=== PATIENT | female | born 1985 | race Caucasian/White ===

== ENCOUNTER 2018-07-07 10:13 | Inpatient (IN) | payer OTHER ==
[~2018-07-07] VITALS: Ht 160 cm; Wt 78.2 kg
[2018-07-07] MEDS ORDERED: TYLOTC500 PO (10:33)
[2018-07-07] MEDS ORDERED: CEPH500C2 PO (10:33)
[2018-07-07] MEDS ORDERED: LACT10SO3 PO (10:33)
[2018-07-07] MEDS ORDERED: SENNTAB23 PO (10:33)
[2018-07-07] MEDS ORDERED: SODIUM CHLORIDE 0.9% 1000ML 500 ML IV STA (10:39)
[2018-07-07] MEDS ORDERED: ONDANSETRON INJ 2 MG/ML 2 ML VIAL IV STA (10:39)
[2018-07-07] MEDS ORDERED: KETOROLAC TROMETHAMINE 30 MG/ML VIAL IV STA (10:39)
[2018-07-07] MEDS ORDERED: MoRPHine SULFATE 4 MG/ML 1 ML CARP\\VIAL IV PRN (10:45)
[2018-07-07 12:07] LABS: BASO % 0.4 %; BASO ABS # 0.03 K/uL (0-0.2); EOS % 3.3 %; EOS ABS # 0.24 K/uL (0-0.5); HEMATOCRIT 31.1 % (37-47); HEMOGLOBIN 10.4 g/dL (12.0-16.0); IG# 0.02 K/uL (0.00-0.02); LYMPH % 17.7 %; LYMPH ABS # 1.29 K/uL (1.2-3.4); MEAN CELL VOLUME 93.7 fL (80-100); MEAN CORPUSCULAR HEMOGLOBIN 31.3 pg (25-34); MEAN CORPUSCULAR HGB CONC 33.4 g/dl (32-36); MEAN PLATELET VOLUME 10.2 fL (7.4-10.4); MONO % 10.1 %; MONO ABS # 0.74 K/uL (0.11-0.59); NEUT % 68.2 %; NEUT ABS # 4.98 K/uL (1.4-6.5); PLATELET COUNT 312 K/uL (130-400); RED CELL DISTRIBUTION WIDTH CV 12.4 % (11.5-14.5); RED CELL DISTRIBUTION WIDTH SD 42.6 fL (36.4-46.3)
[2018-07-07 12:26] LABS: ALBUMIN 2.8 gm/dl (3.4-5.0); CALCIUM 8.9 mg/dl (8.5-10.1); CREATININE 0.66 mg/dl (0.60-1.20); POTASSIUM 3.4 mmol/L (3.5-5.1); TOTAL PROTEIN 6.5 gm/dl (6.4-8.2)
--- NOTE | 2018-07-07 13:00 | DIAGNOSTIC IMAGING REPORT ---
(WARD/BLAD)RETROPERITON COMP HISTORY: Pain FLANK PAIN COMPARISON: None. FINDINGS: Right kidney: Maximum dimension 10.7 cm. No evidence for hydronephrosis. Normal corticomedullary differentiation and cortical thickness. Left kidney: Maximum dimension 11.8 cm. No evidence for hydronephrosis. Normal corticomedullary differentiation and cortical thickness. Bladder: No bladder wall thickening. The bilateral ureteral jets were identified. IMPRESSION: Normal renal ultrasound. The above report was generated using voice recognition software. It may contain grammatical, syntax or spelling errors. Electronically signed by: Marshall Collins M.D. 07/07/2018 12:59 PM Dictated Date/Time: 07/07/2018 12:58 PM
[2018-07-07] MEDS ORDERED: OPTIRAY 320 IV PRN (13:30)
--- NOTE | 2018-07-07 14:33 | DIAGNOSTIC IMAGING REPORT ---
ABD/PELVIS IV CONTRAST ONLY CT DOSE: 375.10 mGy.cm HISTORY: Pain ABD PAIN, POSS renal abscess, IV CONTRAST ONLY TECHNIQUE: Multiaxial CT images of the abdomen and pelvis were performed following the use of intravenous contrast. A dose lowering technique was utilized adhering to the principles of ALARA. COMPARISON STUDY: None. FINDINGS: Small right and to a lesser extent left basilar pleural effusion. Bibasilar atelectatic and or infiltrative changes considered more prominent on the right. Liver spleen and pancreas enhance uniformly. There is a small amount of perihepatic as well as perisplenic ascites. There is moderate amount of gallbladder wall edema versus a trace amount of pericholecystic fluid. Gallbladder does not appear distended. Pancreas appears uniform. Right kidney enhances uniformly. Left kidney demonstrates a small geographic area of diminished enhancement at its anterior mid pole. A low-grade pyelonephritis is considered. Indication of fluid within the right and to a lesser extent left paracolic gutter. The bowel pattern is considered nonobstructive. There is a moderate amount of free fluid within the pelvic cul-de-sac. Uterus is anteflexed. No findings of mild infiltrative change of the fascial planes surrounding and superior to the bladder. Slight edematous change of the ovaries. IMPRESSION: 1. Small bilateral pleural effusions with right and to lesser extent left basilar infiltrative change. 2. Regional diminished enhancement mid aspect left kidney anteriorly suggesting focal pyelonephritis. 3. Small amount of ascites within the right as well as left paracolic gutter with moderate ascites within the pelvis. 4. Mild infiltrative changes with fat surrounding the bladder raising the possibility of an underlying component of cystitis. 5. Trace pericholecystic fluid versus a moderate wall edema. This may be secondary to the ascites present, although a component of acalculus cholecystitis is not excluded The above report was generated using voice recognition software. It may contain grammatical, syntax or spelling errors. Electronically signed by: Marshall Collins M.D. 07/07/2018 2:32 PM Dictated Date/Time: 07/07/2018 2:23 PM
[2018-07-07] MEDS ORDERED: CEFEPIME IV 2,000 MG in DEXTROSE 5% 100ML 100 ML IV STA (14:55)
[2018-07-07] MEDS ORDERED: CEFEPIME IV 1,000 MG in DEXTROSE 5% 100ML 100 ML IV SCH (15:45)
--- NOTE | 2018-07-07 17:05 | EMERGENCY ROOM VISIT NOTE ---
History Report prepared by [place]: Lakisha Payton Under the Supervision of: Dr. Isaac Alcaraz M.D. First contact with patient: 10:29 Chief Complaint: FEVER Stated Complaint: PAIN,SWOLLEN ABDOMEN,FEVER,CHILLS History of Present Illness The patient is a 32 year old female who presents to the Emergency Room with complaints of constant bilateral flank pain that she rates at a 8/10. The patient states that about two weeks ago, she got a UTI and did not go to the doctor because she did not have insurance. She states that she then began to get more sick. The patient states she began to get flank pain on both sides, abdominal pain, nauseous, and feverish. She states that she went to [facility] when her left flank started to be more painful than her right flank. The patient states that [place] did a CT scan and a urine culture, and told her that she had an abscess forming on her left kidney and that they wanted her to go to [facility]. [place], they told her that they would give her 24-[address] before doing another [address] scan, however, she states that they never did another CT scan. She states that she was on vancomycin the entire time she was there. She was discharged yesterday morning and is currently on Keflex. The patient states that has never had a kidney stone or kidney infection, and states that she has no concern for . The patient states that she still has all of the same symptoms that she had when she originally went to [place]. The patient denies vomiting in the past 24 hours. The patient states that her abdomen is swollen. The patient states that she was on oxycodone and Dilaudid and then took stool softeners when she got home yesterday and is now having bowel movements. Source of History: patient Onset: two weeks prior to arrival Position: back (bilateral flank) Symptom Intensity: 8/10 Timing: constant Associated Symptoms: + urinary symptoms, No vomiting Note: additional symptoms: swollen abdomen Review of Systems See HPI for pertinent positives & negatives. A total of 10 systems reviewed and were otherwise negative. Past Medical & Surgical Pyelonephritis Social History Smoking Status: Former Smoker Current/Historical Medications Scheduled Acetaminophen (Tylenol), 1,000 MG PO DIRECTED Cephalexin Monohydrate (Keflex), 500 MG PO QID Lactulose (Chronulac), 1 DOSE PO UD Sennosides-Docusate Sodium (Stool Softener), 1 DOSE PO UD Allergies Coded Allergies: Amoxicillin (Unverified Allergy, Unknown, ., 07/07/18) Clavulanic Acid (Unverified Allergy, Unknown, ., 07/07/18) Physical Exam Vital Signs Date Time Temp Pulse Resp B/P (MAP) Pulse Ox O2 Delivery O2 Flow Rate FiO2 07/07/18 15:41 47 17 113/72 99 Room Air 07/07/18 13:19 46 103/71 98 Room Air 07/07/18 12:13 52 17 109/73 97 07/07/18 10:16 36.4 75 17 145/98 98 Room Air Physical Exam GENERAL: Patient is in no acute distress. HEENT: No acute trauma, normocephalic atraumatic, mucous membranes moist, no nasal congestion, no scleral icterus. NECK: No stridor, no adenopathy, no meningismus, trachea is midline. LUNGS: Clear to auscultation bilaterally, no wheeze, no rhonchi, breath sounds equal. HEART: Without murmurs gallops or rubs, regular rate and rhythm. ABDOMEN: Soft, bowel sounds positive, no hernias, no peritonitis. Diffusely mildly tender. EXTREMITIES: No cyanosis or edema, full range of motion of all the joints without pain or difficulty, no signs for acute trauma. NEUROLOGIC: Oriented x 3, no acute motor or sensory deficits, no focal weakness. SKIN: No rash, no jaundice, no diaphoresis. BACK: Mild bilateral flank discomfort with percussion. Medical Decision & Procedures ER Provider Diagnostic Interpretation: Radiology results as stated below per my review and radiologist interpretation: (WARD/BLAD)RETROPERITON COMP HISTORY: Pain FLANK PAIN COMPARISON: None. FINDINGS: Right kidney: Maximum dimension 10.7 cm. No evidence for hydronephrosis. Normal corticomedullary differentiation and cortical thickness. Left kidney: Maximum dimension 11.8 cm. No evidence for hydronephrosis. Normal corticomedullary differentiation and cortical thickness. Bladder: No bladder wall thickening. The bilateral ureteral jets were identified. IMPRESSION: Normal renal ultrasound. The above report was generated using voice recognition software. It may contain grammatical, syntax or spelling errors. Electronically signed by: Marsahll Collins M.D. 07/07/2018 12:59 PM Dictated Date/Time: 07/07/2018 12:58 PM ABD/PELVIS IV CONTRAST ONLY CT DOSE: 375.10 mGy.cm HISTORY: Pain ABD PAIN, POSS renal abscess, IV CONTRAST ONLY TECHNIQUE: Multiaxial CT images of the abdomen and pelvis were performed following the use of intravenous contrast. A dose lowering technique was utilized adhering to the principles of ALARA. COMPARISON STUDY: None. FINDINGS: Small right and to a lesser extent left basilar pleural effusion. Bibasilar atelectatic and or infiltrative changes considered more prominent on the right. Liver spleen and pancreas enhance uniformly. There is a small amount of perihepatic as well as perisplenic ascites. There is moderate amount of gallbladder wall edema versus a trace amount of pericholecystic fluid. Gallbladder does not appear distended. Pancreas appears uniform. Right kidney enhances uniformly. Left kidney demonstrates a small geographic area of diminished enhancement at its anterior mid pole. A low-grade pyelonephritis is considered. Indication of fluid within the right and to a lesser extent left paracolic gutter. The bowel pattern is considered nonobstructive. There is a moderate amount of free fluid within the pelvic cul-de-sac. Uterus is anteflexed. No findings of mild infiltrative change of the fascial planes surrounding and superior to the bladder. Slight edematous change of the ovaries. IMPRESSION: 1. Small bilateral pleural effusions with right and to lesser extent left basilar infiltrative change. 2. Regional diminished enhancement mid aspect left kidney anteriorly suggesting focal pyelonephritis. 3. Small amount of ascites within the right as well as left paracolic gutter with moderate ascites within the pelvis. 4. Mild infiltrative changes with fat surrounding the bladder raising the possibility of an underlying component of cystitis. 5. Trace pericholecystic fluid versus a moderate wall edema. This may be secondary to the ascites present, although a component of acalculus cholecystitis is not excluded The above report was generated using voice recognition software. It may contain grammatical, syntax or spelling errors. Electronically signed by: Marshall Collins M.D. 07/07/2018 2:32 PM Dictated Date/Time: 07/07/2018 2:23 PM Laboratory Results 07/07/18 11:55 Red Blood Count 3.32, Mean Corpuscular Volume 93.7, Mean Corpuscular Hemoglobin 31.3, Mean Corpuscular Hemoglobin Concent 33.4, Mean Platelet Volume 10.2, Neutrophils (%) (Auto) 68.2, Lymphocytes (%) (Auto) 17.7, Monocytes (%) (Auto) 10.1, Eosinophils (%) (Auto) 3.3, Basophils (%) (Auto) 0.4, Neutrophils # (Auto ) 4.98, Lymphocytes # (Auto) 1.29, Monocytes # (Auto) 0.74, Eosinophils # (Auto ) 0.24, Basophils # (Auto) 0.03 07/07/18 11:55 Test 07/07/18 10:30 07/07/18 11:55 Urine Color YELLOW Urine Appearance CLEAR (CLEAR) Urine pH 6.0 (4.5-7.5) Urine Specific [place] 1.007 (1.000-1.030) Urine Protein NEG (NEG) Urine Glucose (UA) NEG (NEG) Urine Ketones NEG (NEG) Urine Occult Blood NEG (NEG) Urine Nitrite NEG (NEG) Urine Bilirubin NEG (NEG) Urine Urobilinogen NEG (NEG) Urine Leukocyte Esterase NEG (NEG) White Blood Count 7.30 K/uL (4.8-10.8) Red Blood Count 3.32 M/uL (4.2-5.4) Hemoglobin 10.4 g/dL (12.0-16.0) Hematocrit 31.1 % (37-47) Mean Corpuscular Volume 93.7 fL (80-100) Mean Corpuscular Hemoglobin 31.3 pg (25-34) Mean Corpuscular Hemoglobin Concent 33.4 g/dl (32-36) Platelet Count 312 K/uL (130-400) Mean Platelet Volume 10.2 fL (7.4-10.4) Neutrophils (%) (Auto) 68.2 % Lymphocytes (%) (Auto) 17.7 % Monocytes (%) (Auto) 10.1 % Eosinophils (%) (Auto) 3.3 % Basophils (%) (Auto) 0.4 % Neutrophils # (Auto) 4.98 K/uL (1.4-6.5) Lymphocytes # (Auto) 1.29 K/uL (1.2-3.4) Monocytes # (Auto) 0.74 K/uL (0.11-0.59) Eosinophils # (Auto) 0.24 K/uL (0-0.5) Basophils # (Auto) 0.03 K/uL (0-0.2) RDW Standard Deviation 42.6 fL (36.4-46.3) RDW Coefficient of Variation 12.4 % (11.5-14.5) Immature Granulocyte % (Auto) 0.3 % Immature Granulocyte # (Auto) 0.02 K/uL (0.00-0.02) Anion Gap 6.0 mmol/L (3-11) Est Creatinine Clear Calc Drug Dose 121.1 ml/min Estimated GFR () 135.5 Estimated GFR (Non- 116.9 BUN/Creatinine Ratio 6.4 (10-20) Calcium Level 8.9 mg/dl (8.5-10.1) Magnesium Level 2.0 mg/dl (1.8-2.4) Total Bilirubin 0.3 mg/dl (0.2-1) Aspartate Amino Transf (AST/SGOT) 27 U/L (15-37) Alanine Aminotransferase (ALT/SGPT) 37 U/L (12-78) Alkaline Phosphatase 126 U/L (45-117) Total Protein 6.5 gm/dl (6.4-8.2) Albumin 2.8 gm/dl (3.4-5.0) Globulin 3.7 gm/dl (2.5-4.0) Albumin/Globulin Ratio 0.8 (0.9-2) Lipase 59 U/L (73-393) Human Chorionic Gonadotropin, Qual NEG (NEG) Laboratory results reviewed by me. Medications Administered Medications (Trade) Dose Ordered Sig/Nicol Route Start Time Stop Time Status Last Admin Dose Admin Sodium Chloride 500 ml @ 999 mls/hr Q31M STAT IV 07/07/18 10:39 07/07/18 11:09 DC 07/07/18 12:11 999 MLS/HR Ondansetron HCl (Zofran Inj) 4 mg NOW STAT IV 07/07/18 10:39 07/07/18 10:42 DC 07/07/18 12:10 4 MG Ketorolac Tromethamine (Toradol Inj) 15 mg NOW STAT IV 07/07/18 10:39 07/07/18 10:42 DC 07/07/18 12:11 15 MG Morphine Sulfate (MoRPHine SULFATE INJ) 4 mg NOW PRN IV 07/07/18 10:45 07/21/18 10:44 07/07/18 12:12 4 MG Cefepime HCl 2000 mg/Dextrose 112.5 ml @ 200 mls/hr ONE STAT IV 07/07/18 14:55 07/07/18 15:28 DC 07/07/18 15:40 200 MLS/HR ED Course 1032: The patient was evaluated in room C6. A complete history and physical exam was performed. 1039: Ordered Toradol Inj 15 mg IV, Zofran Inj 4 mg IV, and Sodium Chloride 500 ml @ 999 mls/hr IV. 1045: Ordered Morphine Sulfate 4 mg IV. 1320: I updated the patient. She is doing fine. 1400: The patient was given Cefepime and Vancomycin at [place]. 1419: I received the patient's information from [place] and there were findings of a left renal abscess. There was talk of a repeat CT scan but there was never one done. 1458: I updated the patient on the findings. 1524: I spoke with Dr. [facility] [place] [facility] and he agreed to evaluate the patient further. Medical Decision Possible differential diagnoses include: Pyelonephritis, UTI, renal failure, renal abscess, electrolyte imbalance, anemia, and failed outpatient treatment. There is no leukocytosis. A mild anemia is present. No significant electrolyte abnormality, kidney failure or hepatitis. testing is negative. Renal ultrasound showed no hydronephrosis. Urinalysis showed no infection or hematuria. Abdominal and pelvis CT shows pyelonephritis with ascites. The bladder was thickened. No evidence for ureteral obstruction. The patient presents with flank pain and abdominal pain. She was treated for a renal abscess and pyelonephritis but feels no improvement. She did receive IV saline, she was given IV morphine for pain, IV Zofran for nausea. She received IV cefepime as antibiotic coverage. She received IV Toradol for additional pain control. The patient is failing outpatient treatment for this infection. I do not think she is stable for discharge home. Further workup is needed to evaluate the kidneys and to try and sort out why she has so much free abdominal fluid. I did speak to the patient and case management. The on-call hospitalist was consulted. Medication Reconcilliation Current Medication List: was personally reviewed by me Blood Pressure Screening Patient's blood pressure: Normal blood pressure Impression Primary Impression: Pyelonephritis Additional Impressions: Renal abscess Ascites Failure of outpatient treatment Scribe Attestation The scribe's documentation has been prepared under my direction and personally reviewed by me in its entirety. I confirm that the note above accurately reflects all work, treatment, procedures, and medical decision making performed by me. Departure Information Dispostion Being Evaluated By Hospitalist Patient Instructions [facility] Problem Qualifiers
--- NOTE | 2018-07-07 17:28 | History and Physical ---
History & Physical Date & Time of Service: Jul 07, 2018 at 17:14 Chief Complaint: Pain,Swollen Abdomen,Fever,Chills Primary Care Physician: Tyler Doran D.O. History of Present Illness Source: patient, hospital records, other small L perinephric abscess on CT at [place] which did not require drainage and has resolved on current CT. Social History Smoking Status: Current Every Day Smoker Allergies Coded Allergies: Amoxicillin (Unverified Allergy, Unknown, ., 07/07/18) Clavulanic Acid (Unverified Allergy, Unknown, ., 07/07/18) Home Medications Scheduled Acetaminophen (Tylenol), 1,000 MG PO DIRECTED Cephalexin Monohydrate (Keflex), 500 MG PO QID Lactulose (Chronulac), 1 DOSE PO UD Sennosides-Docusate Sodium (Stool Softener), 1 DOSE PO UD Physical Exam Vital Signs Date Time Temp Pulse Resp B/P (MAP) Pulse Ox O2 Delivery O2 Flow Rate FiO2 07/07/18 15:41 47 17 113/72 99 Room Air 07/07/18 13:19 46 103/71 98 Room Air 07/07/18 12:13 52 17 109/73 97 07/07/18 10:16 36.4 75 17 145/98 98 Room Air Diagnostics Laboratory Results Results Past 24 Hours Test 07/07/18 10:30 07/07/18 11:55 Range/Units Urine Color YELLOW Urine Appearance CLEAR CLEAR Urine pH 6.0 4.5-7.5 Urine Specific [place] 1.007 1.000-1.030 Urine Protein NEG NEG Urine Glucose (UA) NEG NEG Urine Ketones NEG NEG Urine Occult Blood NEG NEG Urine Nitrite NEG NEG Urine Bilirubin NEG NEG Urine Urobilinogen NEG NEG Urine Leukocyte Esterase NEG NEG White Blood Count 7.30 4.8-10.8 K/uL Red Blood Count 3.32 4.2-5.4 M/uL Hemoglobin 10.4 12.0-16.0 g/dL Hematocrit 31.1 37-47 % Mean Corpuscular Volume 93.7 80-100 fL Mean Corpuscular Hemoglobin 31.3 25-34 pg Mean Corpuscular Hemoglobin Concent 33.4 32-36 g/dl Platelet Count 312 130-400 K/uL Mean Platelet Volume 10.2 7.4-10.4 fL Neutrophils (%) (Auto) 68.2 % Lymphocytes (%) (Auto) 17.7 % Monocytes (%) (Auto) 10.1 % Eosinophils (%) (Auto) 3.3 % Basophils (%) (Auto) 0.4 % Neutrophils # (Auto) 4.98 1.4-6.5 K/uL Lymphocytes # (Auto) 1.29 1.2-3.4 K/uL Monocytes # (Auto) 0.74 0.11-0.59 K/uL Eosinophils # (Auto) 0.24 0-0.5 K/uL Basophils # (Auto) 0.03 0-0.2 K/uL RDW Standard Deviation 42.6 36.4-46.3 fL RDW Coefficient of Variation 12.4 11.5-14.5 % Immature Granulocyte % (Auto) 0.3 % Immature Granulocyte # (Auto) 0.02 0.00-0.02 K/uL Sodium Level 142 136-145 mmol/L Potassium Level 3.4 3.5-5.1 mmol/L Chloride Level 110 98-107 mmol/L Carbon Dioxide Level 25 21-32 mmol/L Anion Gap 6.0 3-11 mmol/L Blood Urea Nitrogen 4 7-18 mg/dl Creatinine 0.66 0.60-1.20 mg/dl Est Creatinine Clear Calc Drug Dose 121.1 ml/min Estimated GFR () 135.5 Estimated GFR (Non- 116.9 BUN/Creatinine Ratio 6.4 10-20 Random Glucose 88 70-99 mg/dl Calcium Level 8.9 8.5-10.1 mg/dl Magnesium Level 2.0 1.8-2.4 mg/dl Total Bilirubin 0.3 0.2-1 mg/dl Aspartate Amino Transf (AST/SGOT) 27 15-37 U/L Alanine Aminotransferase (ALT/SGPT) 37 12-78 U/L Alkaline Phosphatase 126 45-117 U/L Total Protein 6.5 6.4-8.2 gm/dl Albumin 2.8 3.4-5.0 gm/dl Globulin 3.7 2.5-4.0 gm/dl Albumin/Globulin Ratio 0.8 0.9-2 Lipase 59 73-393 U/L Human Chorionic Gonadotropin, Qual NEG NEG Diagnostic Radiology CT abdomen: 1. Small bilateral pleural effusions with right and to lesser extent left basilar infiltrative change. 2. Regional diminished enhancement mid aspect left kidney anteriorly suggesting focal pyelonephritis. 3. Small amount of ascites within the right as well as left paracolic gutter with moderate ascites within the pelvis. 4. Mild infiltrative changes with fat surrounding the bladder raising the possibility of an underlying component of cystitis. 5. Trace pericholecystic fluid versus a moderate wall edema. This may be secondary to the ascites present, although a component of acalculus cholecystitis is not excluded. Impression Resuscitation Status
[2018-07-07] MEDS ORDERED: ALUMINUM/MAGNESIUM/SIMETH (MAALOX MAX) 30 ML UDC PO PRN (17:30)
[2018-07-07] MEDS ORDERED: ZOLPIDEM TARTRATE 5 MG TAB PO PRN (17:30)
[2018-07-07] MEDS ORDERED: POLYETHYLENE (MIRALAX) 17 GM PACK PO PRN (17:30)
[2018-07-07] MEDS ORDERED: MAGNESIUM HYDROXIDE SUSP 30 ML UDC PO PRN (17:30)
[2018-07-07 17:55] VITALS: O2SAT 99; Ht 160 cm; Wt 78.2 kg
[2018-07-07] MEDS ORDERED: IBUPROFEN 600 MG TAB PO PRN (18:00)
[2018-07-07 18:15] VITALS: BP 139/79; PULSE 58; TEMP 36.8; O2SAT 18
--- NOTE | 2018-07-07 18:18 | History and Physical ---
History & Physical Date & Time of Service: Jul 07, 2018 at 17:49 Chief Complaint: Pain,Swollen Abdomen,Fever,Chills Primary Care Physician: Tyler Doran D.O. History of Present Illness 32 y/o F - denies any active medical issues. She was initially at [facility] for evaluation of UTI symptoms and L flank pain. She was diagnosed with a small L perinephric abscess and pyelonephritis on CT. She was transferred to [place] 07/04 in the event that she required intervention. She was managed medically at [place] and eventually discharged with Keflex 07/06. She continued to have back pain, pelvic pain and fevers and subsequently presented to [facility] as she was unhappy with the care provided at [place]. She is afebrile on arrival. A UA is (+) and a repeat CT revealed small bilateral pleural effusions with infiltrative changes, likely left kidney focal pyelonephritis, ascites within the right as well as left paracolic gutter with moderate ascites within the pelvis. There are mild infiltrative changes with fat surrounding the bladder consistent with cystitis. Trace pericholecystic fluid versus a moderate gallbladder wall edema may be secondary to the ascites although acalculus cholecystitis is not excluded. Her clinical exam is not consistent with cholecystitis and her flank pain is worse on the R despite the CT reading. Past Medical/Surgical History 1) Pyelonephritis 2) History of Chlamydia in late teens/early 20s Social History She has not smoked for 5 days although it is noted that she would not have been able to do so at the hospital. She smokes under a pack daily. 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 Smoking Status: Current Every Day Smoker Allergies Coded Allergies: Amoxicillin (Unverified Allergy, Unknown, ., 07/07/18) Clavulanic Acid (Unverified Allergy, Unknown, ., 07/07/18) Home Medications Scheduled Acetaminophen (Tylenol), 1,000 MG PO DIRECTED Cephalexin Monohydrate (Keflex), 500 MG PO QID Lactulose (Chronulac), 1 DOSE PO UD Sennosides-Docusate Sodium (Stool Softener), 1 DOSE PO UD Physical Exam Vital Signs Date Time Temp Pulse Resp B/P (MAP) Pulse Ox O2 Delivery O2 Flow Rate FiO2 07/07/18 15:41 47 17 113/72 99 Room Air 07/07/18 13:19 46 103/71 98 Room Air 07/07/18 12:13 52 17 109/73 97 07/07/18 10:16 36.4 75 17 145/98 98 Room Air Diagnostics Laboratory Results Results Past 24 Hours Test 07/07/18 10:30 07/07/18 11:55 07/07/18 17:30 Range/Units Urine Color YELLOW Urine Appearance CLEAR CLEAR Urine pH 6.0 4.5-7.5 Urine Specific [place] 1.007 1.000-1.030 Urine Protein NEG NEG Urine Glucose (UA) NEG NEG Urine Ketones NEG NEG Urine Occult Blood NEG NEG Urine Nitrite NEG NEG Urine Bilirubin NEG NEG Urine Urobilinogen NEG NEG Urine Leukocyte Esterase NEG NEG White Blood Count 7.30 4.8-10.8 K/uL Red Blood Count 3.32 4.2-5.4 M/uL Hemoglobin 10.4 12.0-16.0 g/dL Hematocrit 31.1 37-47 % Mean Corpuscular Volume 93.7 80-100 fL Mean Corpuscular Hemoglobin 31.3 25-34 pg Mean Corpuscular Hemoglobin Concent 33.4 32-36 g/dl Platelet Count 312 130-400 K/uL Mean Platelet Volume 10.2 7.4-10.4 fL Neutrophils (%) (Auto) 68.2 % Lymphocytes (%) (Auto) 17.7 % Monocytes (%) (Auto) 10.1 % Eosinophils (%) (Auto) 3.3 % Basophils (%) (Auto) 0.4 % Neutrophils # (Auto) 4.98 1.4-6.5 K/uL Lymphocytes # (Auto) 1.29 1.2-3.4 K/uL Monocytes # (Auto) 0.74 0.11-0.59 K/uL Eosinophils # (Auto) 0.24 0-0.5 K/uL Basophils # (Auto) 0.03 0-0.2 K/uL RDW Standard Deviation 42.6 36.4-46.3 fL RDW Coefficient of Variation 12.4 11.5-14.5 % Immature Granulocyte % (Auto) 0.3 % Immature Granulocyte # (Auto) 0.02 0.00-0.02 K/uL Sodium Level 142 136-145 mmol/L Potassium Level 3.4 3.5-5.1 mmol/L Chloride Level 110 98-107 mmol/L Carbon Dioxide Level 25 21-32 mmol/L Anion Gap 6.0 3-11 mmol/L Blood Urea Nitrogen 4 7-18 mg/dl Creatinine 0.66 0.60-1.20 mg/dl Est Creatinine Clear Calc Drug Dose 121.1 ml/min Estimated GFR () 135.5 Estimated GFR (Non- 116.9 BUN/Creatinine Ratio 6.4 10-20 Random Glucose 88 70-99 mg/dl Calcium Level 8.9 8.5-10.1 mg/dl Magnesium Level 2.0 1.8-2.4 mg/dl Total Bilirubin 0.3 0.2-1 mg/dl Aspartate Amino Transf (AST/SGOT) 27 15-37 U/L Alanine Aminotransferase (ALT/SGPT) 37 12-78 U/L Alkaline Phosphatase 126 45-117 U/L Total Protein 6.5 6.4-8.2 gm/dl Albumin 2.8 3.4-5.0 gm/dl Globulin 3.7 2.5-4.0 gm/dl Albumin/Globulin Ratio 0.8 0.9-2 Lipase 59 73-393 U/L Human Chorionic Gonadotropin, Qual NEG NEG Diagnostic Radiology 1. Small bilateral pleural effusions with right and to lesser extent left basilar infiltrative change. 2. Regional diminished enhancement mid aspect left kidney anteriorly suggesting focal pyelonephritis. 3. Small amount of ascites within the right as well as left paracolic gutter with moderate ascites within the pelvis. 4. Mild infiltrative changes with fat surrounding the bladder raising the possibility of an underlying component of cystitis. 5. Trace pericholecystic fluid versus a moderate wall edema. This may be secondary to the ascites present, although a component of acalculus cholecystitis is not excluded. Impression Assessment and Plan 32 y/o F - denies any active medical issues. She was initially at [facility] for evaluation of UTI symptoms and L flank pain. She was diagnosed with a small L perinephric abscess and pyelonephritis on CT. She was transferred to [place] 07/04 in the event that she required intervention. She was managed medically at [place] and eventually discharged with Keflex 07/06. She continued to have back pain, pelvic pain and fevers and subsequently presented to [facility] as she was unhappy with the care provided at [place]. She is afebrile on arrival. A UA is (+) and a repeat CT revealed small bilateral pleural effusions with infiltrative changes, likely left kidney focal pyelonephritis, ascites within the right as well as left paracolic gutter with moderate ascites within the pelvis. There are mild infiltrative changes with fat surrounding the bladder consistent with cystitis. Trace pericholecystic fluid versus a moderate gallbladder wall edema may be secondary to the ascites although acalculus cholecystitis is not excluded. 1) Persistent pyelonephritis - she is placed on Cefepime pending culture results. Due to her ascites and pelvic pain, we have requested a PYROTECHNIST consult and provided a dose of Zithro to cover PID. The cause of her additional CT findings is otherwise not clear at present. 2) She is encouraged to continue smoking cessation. Full code - Heparin prophylaxis Total time for this admit includig review of labs, meds, imaging, outside records - discussion with pt and ER attending - 37 min Resuscitation Status VTE Prophylaxis Will order VTE Prophylaxis: Yes
[2018-07-07 18:48] LABS: INR 0.9 (0.9-1.1)
[2018-07-07] MEDS ORDERED: D5NSS + 20MEQ KCL 1,000 ML IV SCH (19:00)
[2018-07-07] MEDS: AZITHROMYCIN IV 500 MG in DEXTROSE 5% 250ML 250 ML IV SCH (19:12)
[2018-07-07] MEDS: TRAMADOL HCL 50 MG TAB PO PRN (19:22)
[2018-07-07] MEDS: ONDANSETRON INJ 2 MG/ML 2 ML VIAL IV PRN (19:40)
[2018-07-07] MEDS: HEPARIN SOD 5000 UNIT/0.5 ML CARP SQ SCH (21:35)
[2018-07-07 22:29] VITALS: BP 108/73; PULSE 57; TEMP 37; O2SAT 98
[2018-07-07 22:33] LABS: HEP C IGG 13 YRS+OLDER_RFLX NEG (NEG)
--- NOTE | 2018-07-08 00:15 | GYNECOLOGICAL CONSULTATION ---
DATE OF CONSULTATION: 07/07/2018 REASON FOR CONSULTATION: Pelvic ascites. HISTORY OF PRESENT ILLNESS: The patient is a 32-year-old nulligravida white female who had been seen at [facility] for apparent UTI and pyelonephritis. She was noted to have a small possible perinephric abscess and pyelonephritis on CT scan and she was transferred in [facility] for further treatment and possible intervention. This occurred on 07/04/2018. She was there for 48 hours. She received IV antibiotics, I mean at that time they noted that she was having increasing abdominal discomfort, especially in the epigastric area but pretty much diffusely involving her whole abdomen. It felt distended and she was having discomfort with coughing, sneezing, taking a deep breath, or touching the substernal area. She was sent home on oral antibiotics for presumed pyelonephritis. She took the cephalexin for 1 -2 doses and felt that her flank pain, back pain, and pelvic pain were continued to be intolerable. She was seen in the Emergency Room here, where white count is normal. She is afebrile at this time. There is moderate ascites in the pelvis as well as in the left and right pericolic gutters. There is some infiltrative changes with fat surrounding the bladder as well as some pericholecystic fluid around the gallbladder. The patient denies any nausea or vomiting and no fever or chills at this time. She notes that her periods have been regular. They have gotten heavier over the last year for the first 3 days and cramping is also increased. She has a long history of ovarian cysts, which appeared to be midcycle and consistent with ovulation-type pain. She has been on control pills in the past for this discomfort. She has never had surgery for an ovarian cyst. She has tried to get and has not been successful, although she has not done any infertility evaluation. She currently has the same partner for at least the last 6 months. Periods have noted to have still been regular with no change in flow. Recently, she notes no change in vaginal discharge, odor. No itching or soreness. She has no history of PID, but did have a positive chlamydia in her early 20s, which was treated quickly and post-treatment chlamydia culture were negative. Recently, she has noted some pain with intercourse, especially in the suprapubic area. She denies any bowel changes or any dysuria at this point. She has not been to see a route agent in several years as the clinic that she was using had closed. Pap smears; however, had been normal in the past. PHYSICAL EXAMINATION: External genitalia are within normal limits. There are no palpable groin nodes. The introitus is nulliparous. Vagina is well rugated. Cervix is nulliparous and without lesions. There is a scant amount of white discharge present vaginally, which is physiologic. On bimanual exam, the uterus is normal size & mobile. There is cervical motion tenderness present that would be considered [id number] in intensity. There are no adnexal masses or tenderness present. Abdomen appears to be distended. There is some tympany and tenderness with percussion along the left abdominal quadrants. Percussion along the right abdomen does not elicit tenderness. She does have tenderness in the substernal area. There is no hepatosplenomegaly present. She has no CVA tenderness. Abdomen on palpation is diffusely tender. Also noted is significant hair growth on her chin. ASSESSMENT: A 32-year-old with presentation consistent with a pyelonephritis, now with abdominal ascites and abdominal pain as well as pelvic pain. Differential diagnosis includes a liver source for the ascites, possible parietal peritoneal tumor, ovarian cancer or Polk' syndrome, although the pelvic findings are not consistent with ovarian cancer or with any ovarian masses. There was no obvious pelvic pathology on the CT scan; however, we will obtain a pelvic ultrasound, a CA-125. The patient is requesting full sexually-transmitted disease testing, which we have done. We have also done a Pap smear and a routine vaginal culture to complete the evaluation. We will also check thyroid panel & testosterone levels as well because of her hirsutism. Further evaluation and recommendations will follow the results of the blood work and the pelvic ultrasound. RUBIO
[2018-07-08] MEDS: CEFEPIME IV 1,000 MG in SYRINGE 0 ML IV SCH ×3 (00:21→15:54)
[2018-07-08] MEDS: TRAMADOL HCL 50 MG TAB PO PRN ×3 (05:36→20:05)
[2018-07-08] MEDS: HEPARIN SOD 5000 UNIT/0.5 ML CARP SQ SCH ×3 (05:37→20:05)
[2018-07-08 07:58] LABS: HEMATOCRIT 31.6 % (37-47); HEMOGLOBIN 10.7 g/dL (12.0-16.0); MEAN CELL VOLUME 93.5 fL (80-100); MEAN CORPUSCULAR HEMOGLOBIN 31.7 pg (25-34); MEAN CORPUSCULAR HGB CONC 33.9 g/dl (32-36); MEAN PLATELET VOLUME 10.6 fL (7.4-10.4); PLATELET COUNT 380 K/uL (130-400); RED CELL DISTRIBUTION WIDTH CV 12.6 % (11.5-14.5); RED CELL DISTRIBUTION WIDTH SD 42.9 fL (36.4-46.3); WHITE BLOOD COUNT 6.93 K/uL (4.8-10.8)
[2018-07-08 08:07] VITALS: BP 111/73; PULSE 60; TEMP 36.7; O2SAT 97
[2018-07-08 08:26] LABS: CALCIUM 8.6 mg/dl (8.5-10.1); CREATININE 0.71 mg/dl (0.60-1.20); POTASSIUM 3.4 mmol/L (3.5-5.1)
--- NOTE | 2018-07-08 09:51 | DIAGNOSTIC IMAGING REPORT ---
PELVIC COMPLETE NON OB CLINICAL HISTORY: 32 years-old Female presenting with pelvic ascites, , Regular menstrual cycles, last menstrual period 06/26/2018, pelvic pressure. TECHNIQUE: Real-time grayscale and color and spectral Doppler ultrasound imaging of the pelvis was performed first using a transabdominal probe and subsequently transvaginal for better characterization. COMPARISON: CT from 07/07/2018. FINDINGS: Uterus: Normal. Anteverted. The uterus measures 6.6 x 2.6 x 3.4 cm. Endometrial stripe measures 5 mm in thickness at the fundus. Endometrium demonstrates greater thickening at the mid to lower uterine segment. At this region the endometrium appears mobile suggesting the presence of endometrial blood products or less likely a polypoid lesion.. Cervix normal. Right adnexa: Right ovary contains numerous follicles. Right ovary measures 3.9 x 2.0 x 2.4 cm. Normal color Doppler flow and arterial and venous waveforms within the ovarian parenchyma. Free fluid in the adnexa. Left adnexa: Left ovary contains numerous follicles. Left ovary measures 3.5 x 2.4 x 1.8 cm. Normal color Doppler flow and arterial and venous waveforms within the ovarian parenchyma. Free fluid in the adnexa. Other: Moderate amount of free fluid in the pelvis, which is anechoic and simple appearing. IMPRESSION: 1. No evidence of ovarian torsion. 2. Abnormal thickening of the endometrium in the mid to lower segment. This may represent blood products or an endometrial polyp. 3. Moderate free fluid in the pelvis, which is greater than expected for physiologic fluid. This is nonspecific and possibly reactive to an infectious or inflammatory process in the abdomen or pelvis. Peritonitis cannot be excluded. Given the numerous follicles in the bilateral ovaries, correlate with a possible history of ovarian stimulation. However, the ovaries are not pathologically enlarged. Electronically signed by: Izaiah Deleon M.D. 07/08/2018 9:50 AM Dictated Date/Time: 07/08/2018 9:45 AM
--- NOTE | 2018-07-08 10:48 | OB/GYN Progress Note ---
CERTIFIED EMERGENCY VEHICLE TECHNICIAN Progress Note Date of Service Jul 08, 2018. Subjective review of studies Objective Vital Signs Date Time Temp Pulse Resp B/P (MAP) Pulse Ox O2 Delivery O2 Flow Rate FiO2 07/08/18 08:45 Room Air 07/08/18 08:07 36.7 60 18 111/73 (86) 97 Room Air 07/08/18 00:00 Room Air 07/07/18 22:29 37.0 57 18 108/73 (85) 98 Room Air 07/07/18 18:15 Room Air 07/07/18 18:15 36.8 58 18 139/79 (99) 18 Room Air 07/07/18 17:55 99 Room Air 07/07/18 17:52 53 17 122/81 99 07/07/18 17:51 53 17 122/81 99 Room Air 07/07/18 15:41 47 17 113/72 99 Room Air 07/07/18 13:19 46 103/71 98 Room Air 07/07/18 12:13 52 17 109/73 97 Laboratory Results Last 24 Hours Test 07/07/18 11:55 07/07/18 11:58 07/07/18 20:40 07/07/18 21:06 White Blood Count 7.30 K/uL Red Blood Count 3.32 M/uL Hemoglobin 10.4 g/dL Hematocrit 31.1 % Mean Corpuscular Volume 93.7 fL Mean Corpuscular Hemoglobin 31.3 pg Mean Corpuscular Hemoglobin Concent 33.4 g/dl Platelet Count 312 K/uL Mean Platelet Volume 10.2 fL Neutrophils (%) (Auto) 68.2 % Lymphocytes (%) (Auto) 17.7 % Monocytes (%) (Auto) 10.1 % Eosinophils (%) (Auto) 3.3 % Basophils (%) (Auto) 0.4 % Neutrophils # (Auto) 4.98 K/uL Lymphocytes # (Auto) 1.29 K/uL Monocytes # (Auto) 0.74 K/uL Eosinophils # (Auto) 0.24 K/uL Basophils # (Auto) 0.03 K/uL RDW Standard Deviation 42.6 fL RDW Coefficient of Variation 12.4 % Immature Granulocyte % (Auto) 0.3 % Immature Granulocyte # (Auto) 0.02 K/uL Sodium Level 142 mmol/L Potassium Level 3.4 mmol/L Chloride Level 110 mmol/L Carbon Dioxide Level 25 mmol/L Anion Gap 6.0 mmol/L Blood Urea Nitrogen 4 mg/dl Creatinine 0.66 mg/dl Est Creatinine Clear Calc Drug Dose 121.1 ml/min Estimated GFR () 135.5 Estimated GFR (Non- 116.9 BUN/Creatinine Ratio 6.4 Random Glucose 88 mg/dl Calcium Level 8.9 mg/dl Magnesium Level 2.0 mg/dl Total Bilirubin 0.3 mg/dl Aspartate Amino Transf (AST/SGOT) 27 U/L Alanine Aminotransferase (ALT/SGPT) 37 U/L Alkaline Phosphatase 126 U/L Total Protein 6.5 gm/dl Albumin 2.8 gm/dl Globulin 3.7 gm/dl Albumin/Globulin Ratio 0.8 Lipase 59 U/L Thyroid Stimulating Hormone (TSH) 2.980 uIu/ml Human Chorionic Gonadotropin, Qual NEG Prothrombin Time 9.7 SECONDS Prothromb Time International Ratio 0.9 Activated Partial Thromboplast Time 28.0 SECONDS Partial Thromboplastin Ratio 1.1 Rapid Plasma Reagin NONREACTIVE Hepatitis B Surface Antigen NEG Hepatitis C Antibody NEG HIV (1&2) Ab and P24 Ag, 4th Gener NEG Test 07/08/18 07:15 White Blood Count 6.93 K/uL Red Blood Count 3.38 M/uL Hemoglobin 10.7 g/dL Hematocrit 31.6 % Mean Corpuscular Volume 93.5 fL Mean Corpuscular Hemoglobin 31.7 pg Mean Corpuscular Hemoglobin Concent 33.9 g/dl RDW Standard Deviation 42.9 fL RDW Coefficient of Variation 12.6 % Platelet Count 380 K/uL Mean Platelet Volume 10.6 fL Sodium Level 141 mmol/L Potassium Level 3.4 mmol/L Chloride Level 109 mmol/L Carbon Dioxide Level 25 mmol/L Anion Gap 7.0 mmol/L Creatinine 0.71 mg/dl Est Creatinine Clear Calc Drug Dose 112.6 ml/min Estimated GFR () 130.6 Estimated GFR (Non- 112.7 BUN/Creatinine Ratio 12.6 Random Glucose 96 mg/dl Calcium Level 8.6 mg/dl Magnesium Level 2.0 mg/dl Assessment and Plan (1) Pelvic ascites Assessment & Plan: Pelvic ultrasound is reviewed. The adnexa are nonenlarged bilaterally. Multiple follicles are seen which could be consistent with a PCO S diagnosis. This would correspond with the patient's hirsutism. The thickening of the endometrial lining is nonspecific for a 32-year-old. This could be related to the menstrual cycle or could also represent an endometrial polyp. The workup and evaluation for this would be as an outpatient. There is nothing from this pelvic ultrasound to account for the ascites seen on the ultrasound as well as a CT scan. There is nothing on the pelvic ultrasound that is concerning for a ovarian malignancy. The CA 125 is still pending, but assuming this to be normal, a CHEMICAL ENGINEERING TECHNOLOGIST source to the ascites is unlikely. We will continue to follow laboratory values on this patient, and provide input as we see fit.
[2018-07-08] MEDS: ACETAMINOPHEN 325 MG TAB PO PRN (12:39)
--- NOTE | 2018-07-08 14:43 | Hospitalist Progress Note ---
Hospitalist Progress Note Date of Service Jul 08, 2018. Subjective Pt evaluation today including: conversation w/ patient, conversation w/ family (significant other at bedside), physical exam, chart review, lab review, review of studies, conversation w/ technical sales consultant, review of inpatient medication list Pain: Improving PO Intake: Tolerating PO diet Voiding: no voiding problems Patient reports feeling improved today. She currently denies any pain while at rest but does get a 5-6 out of 10 dull aching pain in her abdomen, bilaterally flanks, and back with any movement, especially walking. She states that this is improved from yesterday, however, when she had 8/10 pain. She states the pain is worse in her right side. She denies any nausea or vomiting and is tolerating a diet. She has not had any fevers here. The patient does voice concern regarding some epigastric pain specifically as it feels different and is more noticeable than her other abdominal pain. She also states she intermittently feels a chest heaviness which she has never had before. Earlier this morning this was also associated with some mild shortness of breath. The patient does note that this could possibly be anxiety. The patient denies fevers, chills, sweats, palpitations, claudication, cough, wheezing, nausea, vomiting, dysuria, hematuria, urinary retention, paralysis, weakness, numbness and tingling. Additional Comments: See HPI for pertinent positives and negatives. All other systems reviewed and negative. Objective Vital Signs Date Time Temp Pulse Resp B/P (MAP) Pulse Ox O2 Delivery O2 Flow Rate FiO2 07/08/18 08:45 Room Air 07/08/18 08:07 36.7 60 18 111/73 (86) 97 Room Air 07/08/18 00:00 Room Air 07/07/18 22:29 37.0 57 18 108/73 (85) 98 Room Air 07/07/18 18:15 Room Air 07/07/18 18:15 36.8 58 18 139/79 (99) 18 Room Air 07/07/18 17:55 99 Room Air 07/07/18 17:52 53 17 122/81 99 07/07/18 17:51 53 17 122/81 99 Room Air 07/07/18 15:41 47 17 113/72 99 Room Air Physical Exam Notes: General appearance: +Obese. Well-developed, well-nourished, no apparent distress Head: Normocephalic, atraumatic Eyes: Normal inspection, PERRL, EOMI ENT: Normal ENT inspection, hearing grossly normal, pharynx normal Neck: Supple, no JVD, trachea midline Respiratory/Chest: Lungs clear to auscultation, normal breath sounds, no respiratory distress Cardiovascular: Regular rate & rhythm, no gallop, no murmur Abdomen/GI: +Mild, diffuse TTP but most marked in upper quadrants, R>L. Bilateral flanks TTP. Right CVA tenderness. No left CVA tenderness. No rebound tenderness. Normal bowel sounds, soft Extremities/Musculoskeletal: Normal inspection, no calf tenderness, no pedal edema Neurological/Psych: Alert, normal mood/affect, oriented x 3 Skin: +Hirsutism. Normal color, warm/dry, no rash Laboratory Results Last 24 Hours Test 07/07/18 20:40 07/07/18 21:06 07/08/18 07:15 Rapid Plasma Reagin NONREACTIVE Hepatitis B Surface Antigen NEG Hepatitis C Antibody NEG HIV (1&2) Ab and P24 Ag, 4th Gener NEG White Blood Count 6.93 K/uL Red Blood Count 3.38 M/uL Hemoglobin 10.7 g/dL Hematocrit 31.6 % Mean Corpuscular Volume 93.5 fL Mean Corpuscular Hemoglobin 31.7 pg Mean Corpuscular Hemoglobin Concent 33.9 g/dl RDW Standard Deviation 42.9 fL RDW Coefficient of Variation 12.6 % Platelet Count 380 K/uL Mean Platelet Volume 10.6 fL Sodium Level 141 mmol/L Potassium Level 3.4 mmol/L Chloride Level 109 mmol/L Carbon Dioxide Level 25 mmol/L Anion Gap 7.0 mmol/L Blood Urea Nitrogen 9 mg/dl Creatinine 0.71 mg/dl Est Creatinine Clear Calc Drug Dose 112.6 ml/min Estimated GFR () 130.6 Estimated GFR (Non- 112.7 BUN/Creatinine Ratio 12.6 Random Glucose 96 mg/dl Calcium Level 8.6 mg/dl Magnesium Level 2.0 mg/dl Diagnostic Results Reviewed the following studies and agree with interpretation as follows: PELVIC COMPLETE NON OB CLINICAL HISTORY: 32 years-old Female presenting with pelvic ascites, , Regular menstrual cycles, last menstrual period 06/26/2018, pelvic pressure. TECHNIQUE: Real-time grayscale and color and spectral Doppler ultrasound imaging of the pelvis was performed first using a transabdominal probe and subsequently transvaginal for better characterization. COMPARISON: CT from 07/07/2018. FINDINGS: Uterus: Normal. Anteverted. The uterus measures 6.6 x 2.6 x 3.4 cm. Endometrial stripe measures 5 mm in thickness at the fundus. Endometrium demonstrates greater thickening at the mid to lower uterine segment. At this region the endometrium appears mobile suggesting the presence of endometrial blood products or less likely a polypoid lesion.. Cervix normal. Right adnexa: Right ovary contains numerous follicles. Right ovary measures 3.9 x 2.0 x 2.4 cm. Normal color Doppler flow and arterial and venous waveforms within the ovarian parenchyma. Free fluid in the adnexa. Left adnexa: Left ovary contains numerous follicles. Left ovary measures 3.5 x 2.4 x 1.8 cm. Normal color Doppler flow and arterial and venous waveforms within the ovarian parenchyma. Free fluid in the adnexa. Other: Moderate amount of free fluid in the pelvis, which is anechoic and simple appearing. IMPRESSION: 1. No evidence of ovarian torsion. 2. Abnormal thickening of the endometrium in the mid to lower segment. This may represent blood products or an endometrial polyp. 3. Moderate free fluid in the pelvis, which is greater than expected for physiologic fluid. This is nonspecific and possibly reactive to an infectious or inflammatory process in the abdomen or pelvis. Peritonitis cannot be excluded. Given the numerous follicles in the bilateral ovaries, correlate with a possible history of ovarian stimulation. However, the ovaries are not pathologically enlarged. Assessment and Plan 32 y/o female without any significant past medical history who presents with fevers and abdomen/pelvis/back pain. Pt had originally presented at [facility] [place] for evaluation of UTI symptoms and left flank pain. She was found to have small left perinephric abscess and pyelonephritis. She was transferred to [facility] on 07/04 in case she needed intervention. She received IV abx there and was discharged on Keflex on 07/06. Reportedly still febrile at home after discharge, prompting here to come here. Pyelonephritis--stable -Admit to med/surg -Continue Cefepime and azithromycin for now, pt feels improved -UA here negative -Called [facility]. Blood cultures NGTD x 2. Urine culture positive for E. coli resistant only to ampicillin, otherwise pansensitive -[facility] records to see if what abx were given. Pt reports receiving vancomycin? but was discharged on Keflex Abdominal/pelvic ascites and pain, possible PID--pain is improved -Pelvic ultrasound shows abnormal thickening of endometrium which may represent blood products vs polyp. Moderate free fluid in pelvis is nonspecific, possbily reactive to infectious or inflammatory process in abdomen or pelvis. Peritonitis cannot be excluded. Numerous follicles in bilateral ovaries. Ovaries not pathologically enlarged -CUT ORDER HAND consulted, appreciate recs: Pelvic ultrasound is reviewed. The adnexa are nonenlarged bilaterally. Multiple follicles are seen which could be consistent with a PCOS diagnosis. The thickening of the endometrial lining is nonspecific for a 32-year-old. This could be related to the menstrual cycle or could also represent an endometrial polyp. The workup and evaluation for this would be as an outpatient. There is nothing from this pelvic ultrasound to account for the ascites seen on imaging. There is nothing on the pelvic ultrasound that is concerning for a ovarian malignancy. The CA 125 is still pending, but assuming this to be normal, a CUT ORDER HAND source to the ascites is unlikely. -Vaginal culture pending -CA-125 pending -HIV, hep B & C, RPR testing negative. Chlamydia and gonorrhea pending -Possible PID, more specifically possible Jv Matthew Eriberto? There is small perihepatic ascites on CT. Pt's pain is more severe on right side despite pyelo being on the left. LFTs WNL. Pt noted to have mild to moderate cervical motion tenderness per CUT ORDER HAND's exam. -Spoke with urology regarding case but does appear that urological involvement would be helpful at this time Possible PCOS -Multiple follicles seen on ovaries, pt does have hirsutism -F/u w/PCP -Testosterone pending -TSH WNL DVT prophylaxis -Heparin 5000 units SC q8h Code Status -Level I, FULL RESUSCITATION STATUS Total time spent in direct patient care 40 minutes and greater than 50% of the time was spent discussing possible diagnoses, tests results, and plan of care.
[2018-07-08] MEDS ORDERED: POTASSIUM CHLORIDE 20 MEQ TABCR PO ONE (14:45)
[2018-07-08] MEDS: ONDANSETRON INJ 2 MG/ML 2 ML VIAL IV PRN (15:54)
[2018-07-08 15:55] VITALS: BP 129/74; PULSE 57; TEMP 36.5; O2SAT 96
[2018-07-08] MEDS: AZITHROMYCIN IV 500 MG in DEXTROSE 5% 250ML 250 ML IV SCH (18:33)
[2018-07-08 22:50] VITALS: BP 90/60; PULSE 51; TEMP 36.7; O2SAT 98
[2018-07-09] MEDS: CEFEPIME IV 1,000 MG in SYRINGE 0 ML IV SCH ×4 (00:11→23:55)
[2018-07-09] MEDS: HEPARIN SOD 5000 UNIT/0.5 ML CARP SQ SCH ×3 (05:57→19:23)
[2018-07-09] MEDS: ONDANSETRON INJ 2 MG/ML 2 ML VIAL IV PRN (07:40)
[2018-07-09] MEDS: ACETAMINOPHEN 325 MG TAB PO PRN (07:45)
[2018-07-09 07:51] LABS: CALCIUM 8.4 mg/dl (8.5-10.1); CREATININE 0.59 mg/dl (0.60-1.20); POTASSIUM 3.7 mmol/L (3.5-5.1)
[2018-07-09 07:53] VITALS: BP 115/81; PULSE 64; TEMP 36.6; O2SAT 93
--- NOTE | 2018-07-09 09:06 | OB/GYN Progress Note ---
SAND SCREENER OPERATOR Progress Note Date of Service Jul 09, 2018. Subjective conversation w/ patient Objective Vital Signs Date Time Temp Pulse Resp B/P (MAP) Pulse Ox O2 Delivery O2 Flow Rate FiO2 07/09/18 07:53 36.6 64 18 115/81 (92) 93 Room Air 07/08/18 22:50 36.7 51 18 90/60 (70) 98 Room Air 07/08/18 20:00 Room Air 07/08/18 16:30 Room Air 07/08/18 15:55 36.5 57 18 129/74 (92) 96 Room Air Laboratory Results Last 24 Hours Test 07/09/18 07:05 Sodium Level 142 mmol/L Potassium Level 3.7 mmol/L Chloride Level 111 mmol/L Carbon Dioxide Level 24 mmol/L Anion Gap 7.0 mmol/L Blood Urea Nitrogen 10 mg/dl Creatinine 0.59 mg/dl Est Creatinine Clear Calc Drug Dose 135.5 ml/min Estimated GFR () 140.6 Estimated GFR (Non- 121.3 BUN/Creatinine Ratio 16.7 Random Glucose 87 mg/dl Calcium Level 8.4 mg/dl Assessment and Plan (1) Pelvic ascites Assessment & Plan: - discussed U/S findings with patient - nothing on U/S to explain ascites - incidental finding of possible polyp - CA125, chlamydia pending - the patient's clinical picture is not consistent with PID - even if chlamydia was (+), that would most likely be incidental - recommend the patient f/u with [facility] (Dr. Matthews) for possible polyp - will continue to follow for CA-125 and chlamydia
--- NOTE | 2018-07-09 14:29 | Hospitalist Progress Note ---
Hospitalist Progress Note Date of Service Jul 09, 2018. Subjective Pt evaluation today including: conversation w/ patient, physical exam, chart review, lab review, review of inpatient medication list Patient reports feeling well, about the same as yesterday. She states that she still has diffuse abdominal pain that gets up to a 5/10 in intensity, but she denies any pain at the moment. She states she developed intermittent abdominal cramping today in addition to the aching pain, but denies any currently. She has not felt any flank or back pain today. She is tolerating a PO diet and denies any nausea or vomiting. She does note that her stools are bit looser today. The patient denies any chest heaviness today or SOB. The patient denies fevers, chills, sweats, chest pain, palpitations, claudication, cough, wheezing, shortness of breath, nausea, vomiting, dysuria, hematuria, urinary retention, paralysis, weakness, numbness and tingling. Additional Comments: See HPI for pertinent positives and negatives. All other systems reviewed and negative. Objective Vital Signs Date Time Temp Pulse Resp B/P (MAP) Pulse Ox O2 Delivery O2 Flow Rate FiO2 07/09/18 08:45 Room Air 07/09/18 07:53 36.6 64 18 115/81 (92) 93 Room Air 07/08/18 22:50 36.7 51 18 90/60 (70) 98 Room Air 07/08/18 20:00 Room Air 07/08/18 16:30 Room Air 07/08/18 15:55 36.5 57 18 129/74 (92) 96 Room Air Physical Exam Notes: General appearance: +Obese. Well-developed, well-nourished, no apparent distress Head: Normocephalic, atraumatic Eyes: Normal inspection, PERRL, EOMI ENT: Normal ENT inspection, hearing grossly normal, pharynx normal Neck: Supple, no JVD, trachea midline Respiratory/Chest: Lungs clear to auscultation, normal breath sounds, no respiratory distress Cardiovascular: Regular rate & rhythm, no gallop, no murmur Abdomen/GI: +Lower quadrants TTP. No rebound tenderness. Normal bowel sounds , soft Extremities/Musculoskeletal: Normal inspection, no calf tenderness, no pedal edema Neurological/Psych: Alert, normal mood/affect, oriented x 3 Skin: +Hirsutism. Normal color, warm/dry, no rash Laboratory Results Last 24 Hours Test 07/09/18 07:05 Sodium Level 142 mmol/L Potassium Level 3.7 mmol/L Chloride Level 111 mmol/L Carbon Dioxide Level 24 mmol/L Anion Gap 7.0 mmol/L Blood Urea Nitrogen 10 mg/dl Creatinine 0.59 mg/dl Est Creatinine Clear Calc Drug Dose 135.5 ml/min Estimated GFR () 140.6 Estimated GFR (Non- 121.3 BUN/Creatinine Ratio 16.7 Random Glucose 87 mg/dl Calcium Level 8.4 mg/dl Assessment and Plan 32 y/o female without any significant past medical history who presents with fevers and abdomen/pelvis/back pain. Pt had originally presented at [place] for evaluation of UTI symptoms and left flank pain. She was found to have small left perinephric abscess and pyelonephritis. She was transferred to [facility] on 07/04 in case she needed intervention. She received IV abx there and was discharged on Keflex on 07/06. Reportedly still febrile at home after discharge, prompting here to come here. Pyelonephritis--stable/improving -Admit to med/surg -Continue Cefepime -UA here negative -Called [facility]. Blood cultures NGTD x 2. Urine culture positive for E. coli resistant only to ampicillin, otherwise pansensitive -Reviewed [facility] records. Pt had been septic there w/WBC of 22, HR of 127. Leukocytosis had resolved while there but per pt fevers had not. Was given Cefepime and vancomycin per records Abdominal/pelvic ascites and pain, possible PID--pain is improved -Pelvic ultrasound shows abnormal thickening of endometrium which may represent blood products vs polyp. Moderate free fluid in pelvis is nonspecific, possbily reactive to infectious or inflammatory process in abdomen or pelvis. Peritonitis cannot be excluded. Numerous follicles in bilateral ovaries. Ovaries not pathologically enlarged -APPLICATIONS DEVELOPMENT ANALYST consulted, appreciate recs: Recommend outpatient follow up with Dr. Matthews for possible endometrial polyp. Will continue to follow for CA-125 and chlamydia results. -Vaginal culture light normal renetta -CA-125 pending -HIV, hep B & C, RPR testing negative. Chlamydia and gonorrhea pending -Possible PID, more specifically possible Jv Matthew Eriberto? There is small perihepatic ascites on CT. Pt's pain is more severe on right side despite pyelo being on the left, had RUQ tenderness. LFTs WNL. Pt noted to have mild to moderate cervical motion tenderness per APPLICATIONS DEVELOPMENT ANALYST's exam. -Spoke with urology regarding case but does appear that urological involvement would be helpful at this time -Continue azithromycin, received 2 days of 500 mg IV, will decrease to 250 mg PO qd x 5 more days Possible PCOS? -Multiple follicles seen on ovaries, pt does have hirsutism -F/u w/PCP and APPLICATIONS DEVELOPMENT ANALYST -Testosterone pending -TSH WNL -Pt also notes she thinks she is infertile. She had tried for several months to get but was never successful. She has not seen infertility specialist. Due to this and being w/same partner for 8 years, they do not use any contraception or barrier methods DVT prophylaxis -Heparin 5000 units SC q8h Code Status -Level I, FULL RESUSCITATION STATUS Dispo -Anticipate discharge tomorrow w/main as above + Omnicef, f/u with APPLICATIONS DEVELOPMENT ANALYST and PCP
[2018-07-09 15:34] VITALS: BP 93/61; PULSE 74; TEMP 36.8; O2SAT 95
[2018-07-09] MEDS: TRAMADOL HCL 50 MG TAB PO PRN (18:31)
[2018-07-09] MEDS ORDERED: AZITHROMYCIN 250 MG TAB PO SCH (19:00)
[2018-07-09 22:56] VITALS: BP 102/68; PULSE 53; TEMP 36.4; O2SAT 96
[2018-07-10] MEDS: HEPARIN SOD 5000 UNIT/0.5 ML CARP SQ SCH (05:50)
[2018-07-10 07:14] VITALS: BP 100/65; PULSE 93; TEMP 37.1; O2SAT 95
[2018-07-10 08:00] VITALS: O2SAT 95
[2018-07-10] MEDS: CEFEPIME IV 1,000 MG in SYRINGE 0 ML IV SCH (08:03)
[2018-07-10 08:05] LABS: CALCIUM 8.3 mg/dl (8.5-10.1); CREATININE 0.65 mg/dl (0.60-1.20); POTASSIUM 3.8 mmol/L (3.5-5.1)
[2018-07-10] MEDS: ACETAMINOPHEN 325 MG TAB PO PRN (08:07)
[2018-07-10] MEDS ORDERED: METRONIDAZOLE 500 MG TAB PO ONE (10:39)
[2018-07-10] MEDS ORDERED: CEFDINIR 300 MG CAP PO ONE (10:39)
[2018-07-10] MEDS ORDERED: MTR500 PO (10:57)
[2018-07-10] MEDS ORDERED: ULT50X PO (10:57)
[2018-07-10] MEDS ORDERED: FLUC150T PO (10:57)
[2018-07-10] MEDS ORDERED: AZIT-57 PO (10:57)
[2018-07-10] MEDS ORDERED: CEFD300C3 PO (10:57)
--- NOTE | 2018-07-10 11:11 | Discharge Instructions ---
Discharge Instructions Date of Service Jul 10, 2018. Admission Reason for Admission: Pelvic Ascites, Pyelonephritis Discharge Discharge Diagnosis / Problem: Pyelonephritis (Kidney Infection/UTI) and Bacterial Vaginosis Discharge Goals Goal(s): Decrease discomfort, Improve function, Increase independence Activity Recommendations Activity Limitations: resume your previous activity . Instructions / Follow-Up Instructions / Follow-Up Pyelonephritis and Urinary Tract Infection and Bacterial Vaginosis: - You were admitted for a UTI which went higher up then just the bladder and can cause kidney inflammation/pain/infection. - Your cultures from [place] shows an E. coli urinary tract infection. Your culture from your pap smear shows gardnerella vaginalis which is a common bacterial organism that causes bacterial vaginosis. - You will be on 3 different antibiotics. - Omnicef 300 mg twice a day which is more the the UTI. You had a dose today in the hospital so will just need a dose tonight then resume twice a day on . - Zithromax 250 mg daily. This can cover the bacterial vaginosis as well and more gyne-related organisms. You did not have a dose yet today and will need to take this when you pick remover your prescription - Flagyl 500 mg three times a day. This is also coverage for the bacterial vaginosis. You will have a dose here in the hospital and will need to take two more times today then resume three times a day on 07/11 - Will send a prescription for Diflucan 150 mg x 1 dose if you get yeast infection signs. May repeat a dose in 2-3 days if not resolved. A prescription was sent with a refill if needed. Bacterial Vaginosis: - Would recommend abstaining from sexual activity until you complete your antibiotics. This is not an STD but can be precipitated by sex. Pelvic Fluid and Possible PCOS: - You have some send out labs pending to test for PCOS and these can be followed up with gynecology. - The fluid may be in response to the infection you are dealing with but gynecology will see if there is any gynecology causes of this. If there is no cause please discuss with your family doctor to explore other possible reasons but this may go away once infection is resolved but should be monitored. Current Hospital Diet Patient's current hospital diet: Regular Diet Discharge Diet Recommended Diet: Regular Diet Pending Studies Studies pending at discharge: yes List of pending studies: Some labs to test for PCOS and gonorrhea/chlamydia Medical Emergencies . Who to Call and When: Medical Emergencies: If at any time you feel your situation is an emergency, please call 911 immediately. . Non-Emergent Contact Non-Emergency issues call your: Primary Care Provider Call Non-Emergent contact if: you have a fever, your pain is concerning you, you have any medication questions . . "Provider Documentation" section prepared by Armida Cobos. .
[2018-07-10 11:56] VITALS: BP 100/65; PULSE 93; TEMP 37.1; O2SAT 95
[2018-07-10] MEDS ORDERED: METRONIDAZOLE 500 MG TAB PO SCH (16:00)
--- NOTE | 2018-07-10 20:39 | Discharge Summary ---
Discharge Summary Date of Service Jul 10, 2018. Discharge Summary Admission Date: Jul 07, 2018 at 17:21 Discharge Date: Jul 10, 2018 Discharge Disposition: Home Principal Diagnosis: Pyelonephritis/E. Coli; Bacterial Vaginosis Problems/Secondary Diagnoses: Medical Problems: (1) Pelvic ascites Procedures: ABD/PELVIS IV CONTRAST ONLY FINDINGS: Small right and to a lesser extent left basilar pleural effusion. Bibasilar atelectatic and or infiltrative changes considered more prominent on the right. Liver spleen and pancreas enhance uniformly. There is a small amount of perihepatic as well as perisplenic ascites. There is moderate amount of gallbladder wall edema versus a trace amount of pericholecystic fluid. Gallbladder does not appear distended. Pancreas appears uniform. Right kidney enhances uniformly. Left kidney demonstrates a small geographic area of diminished enhancement at its anterior mid pole. A low-grade pyelonephritis is considered. Indication of fluid within the right and to a lesser extent left paracolic gutter. The bowel pattern is considered nonobstructive. There is a moderate amount of free fluid within the pelvic cul-de-sac. Uterus is anteflexed. No findings of mild infiltrative change of the fascial planes surrounding and superior to the bladder. Slight edematous change of the ovaries. IMPRESSION: 1. Small bilateral pleural effusions with right and to lesser extent left basilar infiltrative change. 2. Regional diminished enhancement mid aspect left kidney anteriorly suggesting focal pyelonephritis. 3. Small amount of ascites within the right as well as left paracolic gutter with moderate ascites within the pelvis. 4. Mild infiltrative changes with fat surrounding the bladder raising the possibility of an underlying component of cystitis. 5. Trace pericholecystic fluid versus a moderate wall edema. This may be secondary to the ascites present, although a component of acalculus cholecystitis is not excluded PELVIC COMPLETE NON OB FINDINGS: Uterus: Normal. Anteverted. The uterus measures 6.6 x 2.6 x 3.4 cm. Endometrial stripe measures 5 mm in thickness at the fundus. Endometrium demonstrates greater thickening at the mid to lower uterine segment. At this region the endometrium appears mobile suggesting the presence of endometrial blood products or less likely a polypoid lesion.. Cervix normal. Right adnexa: Right ovary contains numerous follicles. Right ovary measures 3.9 x 2.0 x 2.4 cm. Normal color Doppler flow and arterial and venous waveforms within the ovarian parenchyma. Free fluid in the adnexa. Left adnexa: Left ovary contains numerous follicles. Left ovary measures 3.5 x 2.4 x 1.8 cm. Normal color Doppler flow and arterial and venous waveforms within the ovarian parenchyma. Free fluid in the adnexa. Other: Moderate amount of free fluid in the pelvis, which is anechoic and simple appearing. IMPRESSION: 1. No evidence of ovarian torsion. 2. Abnormal thickening of the endometrium in the mid to lower segment. This may represent blood products or an endometrial polyp. 3. Moderate free fluid in the pelvis, which is greater than expected for physiologic fluid. This is nonspecific and possibly reactive to an infectious or inflammatory process in the abdomen or pelvis. Peritonitis cannot be excluded. Given the numerous follicles in the bilateral ovaries, correlate with a possible history of ovarian stimulation. However, the ovaries are not pathologically enlarged. Consultations: 1. OB/GYNE Medication Reconciliation New Medications: Fluconazole (Diflucan) 150 Mg Tab 150 MG PO DAILY PRN for Yeast Infection, #1 TAB 1 Refill Take one dose if needed for yeast infection. Azithromycin (Azithromycin) 250 Mg Tab 250 MG PO DAILY@1900 for 4 Days, #4 TAB Start 07/10 Cefdinir (Cefdinir) 300 Mg Cap 300 MG PO BID, #13 CAP Take one tablet tonight on 07/10 then resume twice a day on 07/11 Metronidazole (Metronidazole) 500 Mg Tab 500 MG PO TID, #20 TAB You had one dose in hospital on 07/10. Tramadol HCl (Tramadol HCl) 50 Mg Tab 50 MG PO Q4H PRN for Pain for 3 Days, #12 TAB Continued Medications: Acetaminophen (Tylenol) 500 Mg Tab 1000 MG PO DIRECTED, TAB Lactulose (Chronulac) Unknown Strength Syrp 1 DOSE PO UD Sennosides-Docusate Sodium (Stool Softener) 1 Tab Tab 1 DOSE PO UD Discontinued Medications: Cephalexin Monohydrate (Keflex) 500 Mg Cap 500 MG PO QID Discharge Exam Review of Systems: Constitutional: No fever, No chills Respiratory: No cough, No shortness of breath Cardiovascular: No chest pain Abdomen: No pain, No nausea, No vomiting, No diarrhea, No constipation Musculoskeletal: + problem reported (mild mid back pain), No swelling, No calf pain Genitourinary - Female: No dysuria Hematologic / Lymphatic: No abnormal bleeding/bruising Physical Exam: General Appearance: WD/WN, no apparent distress Eyes: sclerae normal ENT: hearing grossly normal Neck: supple, no JVD, trachea midline Respiratory/Chest: lungs clear, normal breath sounds, no respiratory distress, no accessory muscle use Cardiovascular: regular rate, rhythm, no gallop, no murmur Abdomen / GI: normal bowel sounds, non tender, soft Extremities: no pedal edema Neurologic/Psychiatric: alert, oriented x 3 Skin: normal color, warm/dry Hospital Course ADMISSION: 32 y/o F - denies any active medical issues. She was initially at [facility] for evaluation of UTI symptoms and L flank pain. She was diagnosed with a small L perinephric abscess and pyelonephritis on CT. She was transferred to [place] 07/04 in the event that she required intervention. She was managed medically at [place] and eventually discharged with Keflex 07/06. She continued to have back pain, pelvic pain and fevers and subsequently presented to [facility] as she was unhappy with the care provided at [place]. She is afebrile on arrival. A UA is (+) and a repeat CT revealed small bilateral pleural effusions with infiltrative changes, likely left kidney focal pyelonephritis, ascites within the right as well as left paracolic gutter with moderate ascites within the pelvis. There are mild infiltrative changes with fat surrounding the bladder consistent with cystitis. Trace pericholecystic fluid versus a moderate gallbladder wall edema may be secondary to the ascites although acalculus cholecystitis is not excluded. Her clinical exam is not consistent with cholecystitis and her flank pain is worse on the R despite the CT reading. HOSPITAL COURSE: Pyelonephritis - E. Coli: IMPROVING - Converted to Omnicef 300 mg BID after initial treatment with Cefepime in-house Abdominal/Pelvic Ascites - Possible PID? and Bacterial Vaginosis: - [facility] followed and ultimately will F/U with Dr. Matthews - Endometrium is thickened; uncertain on pelvic fluid and possibly from infection? CA-125 pending however imaging doesn't really support Ovarian CA; Gonorrhea/Chlamydia pending - Vaginal Cx with Gardnerella vaginalis - will cover with Zithromax 250 mg daily which would cover is gonorrhea/chlamydia would be positive; Added Flagyl 500 mg TID for anaerobic coverage as Zithro could cover but given her prolonged issues will add Flagyl - If gynecological work-up does not support ascites then further work-up will be needed Possible PCOS: - Clinically supports this diagnosis with some labs pending to fully assess - again F/U with gynecology will be beneficial Disposition: - Will have case management assist with F/U appointments with PCP and Gyne - Patient is due to have insurance at the end of the month - appreciate case managements assistance will helping patient out Total Time Spent: Greater than 30 minutes This includes examination of the patient, discharge planning, medication reconciliation, and communication with other providers. Discharge Instructions Please refer to the electronic Patient Visit Report (Discharge Instructions) for additional information. Additional Copies To Gilma Ceja M.D.; Tyler Doran D.O.
[2018-07-10] MEDS ORDERED: CEFDINIR 300 MG CAP PO SCH (21:00)
== END 2018-07-10 12:50 | disposition home or self-care (01) | DRG 690 ==
LOC: C.EDB 10:16 → C.MS2W 17:21 → EDBEDREQ 17:27 → ENRESERV 17:41
PROVIDERS: ADMIT Internal Medicine; ATTEND Internal Medicine
DX: N12 Tubulo-interstitial nephritis, not specified as acute or chronic (principal); R18.8 Other ascites; N15.1 Renal and perinephric abscess; B96.20 Unspecified Escherichia coli [E. coli] as the cause of diseases classified elsewhere; Z16.11 Resistance to penicillins; N76.0 Acute vaginitis; B96.89 Other specified bacterial agents as the cause of diseases classified elsewhere; R10.2 Pelvic and perineal pain; R93.8 Abnormal findings on diagnostic imaging of other specified body structures; E28.2 Polycystic ovarian syndrome; N84.0 Polyp of corpus uteri; L68.0 Hirsutism; F17.210 Nicotine dependence, cigarettes, uncomplicated; Z79.899 Other long term (current) drug therapy; Z88.0 Allergy status to penicillin; Z88.1 Allergy status to other antibiotic agents